=== PATIENT | male | born 1955 | race Caucasian/White ===

== ENCOUNTER 2023-11-01 09:19 | Emergency (ER) | payer OTHER, SELFPAY ==
--- NOTE | ~2023-11-01 | CT_ITS ---
EXAMINATION: CT abdomen pelvis w con DATE: 11/01/2023 13:46 INDICATION: pancreatitis TECHNIQUE: Computed tomography (CT) of the abdomen and pelvis was performed with 100 mL Omnipaque-350 intravenous contrast. Automated exposure control and iterative reconstruction technique were employe d. The dose-length product was 835.72 mGy-cm. COMPARISON: CTA chest abdomen pelvis 09/11/2023. FINDINGS: Lower thorax: Cardiomegaly. Pacer wires. Senescent changes in the lungs. Pulmonary granulomas. Scatte red areas of tubular and rounded Y and V shaped opacities in the right lower lobe. Anterior right eve st wall implant right, lead extending to the right pleural space. Liver: Multiple small cysts and lesions that are too small to characterize but also probably represen t cysts. Biliary/Gallbladder: Gallbladder is normal. No bile duct dilation. Pancreas: Stable mild pancreatic duct dilation. No mass. No surrounding inflammatory change. Spleen: Normal. Adrenals:No mass. Kidneys: No suspicious mass, obstructing stone, or hydronephrosis simple left renal cysts. GI tract: No small or large bowel dilation. Normal appendix. Diverticulosis without diverticulitis. Mesentery/Peritoneum: No ascites, mass, or free air. Right retroperitoneal implant with wires extendi ng to the lumbar spine. Retroperitoneum: No mass. Atherosclerotic abdominal aortic and/or arterial calcifications. Pelvis: Marked prostatomegaly. Normal urinary bladder. Brachytherapy seeds. Soft Tissues: Soft tissues and body wall unremarkable. Bones: No acute osseous finding. Uncomplicated posterior fusion hardware. IMPRESSION: No acute abdominopelvic process detected. Specifically, no CT evidence of acute pancreatitis. Chronic right lower lobe mucoid impaction/bronchoceles as can be seen with ABPA, and some endobronchi al lesions. Reviewed, dictated and finalized at location K. K WASHER IMPRESSION: No acute abdominopelvic process detected. Specifically, no CT evidence of acute pancreatitis. Chronic right lower lobe mucoid impaction/bronchoceles as can be seen with ABPA , and some endobronchial lesions.
--- NOTE | ~2023-11-01 | XR_ITS ---
EXAMINATION: XR chest 1V portable DATE: 11/01/2023 10:02 INDICATION: Intermittent chest pain TECHNIQUE: frontal view of the chest was obtained. COMPARISON: Chest radiograph and CT dated 09/11/23 FINDINGS: Chronic elevation of the left hemidiaphragm. Asymmetric increased lucency of the right lung relative to the left likely resulting from mild rightward rotation of the patient. No focal airspace opacities , pulmonary edema, pleural effusion or pneumothorax. The cardiomediastinal silhouette is within ar l limits for AP technique. Dual lead pacemaker seen with leads projecting over the expected locations of the right atrium and right ventricle. Additional electronic device with leads at the right chest wall and second lead extending cephalad into the right neck. IMPRESSION: 1. No acute cardiopulmonary disease. Reviewed, dictated and finalized at location A. MAKER APPRENTICE
--- NOTE | ~2023-11-01 | CT_ITS ---
EXAMINATION: CTA chest DATE: 11/01/2023 10:47 INDICATION: Chest pain TECHNIQUE: Computed tomographic angiography (CTA) of the chest was performed 100 mL Omnipaque-350 int ravenous contrast. Volume-rendered 3D-reconstructions of the aorta and large arteries were constructe d by the technologist on a separate workstation. Automated exposure control and iterative reconstruct ion technique were employed. The dose-length product was 727.04 mGy-cm. COMPARISON: CT dated 09/11/2023 FINDINGS: Elevation of the left hemidiaphragm with mild left basilar atelectasis. Very small posterior layering left pleural effusion. A couple chronic bronchoceles in the posterior right lower lobe. No pneumonia , pulmonary edema or right-sided pleural effusion. Heart size is normal. No pericardial effusion. Verito l lead pacemaker/AICD seen with lead tips at the radial appendage and at the apex of the right ventri melissa. Unchanged fusiform ectasia of the ascending thoracic aorta which measures up to 4.3 cm in mariah l diameter. There is a small amount of scattered nonhemodynamically significant atherosclerotic plaqu e in the aorta with no dissection. No pathologically enlarged thoracic lymphadenopathy. A few scatter ed subcentimeter hepatic cysts. Visualized upper abdomen is otherwise unremarkable. Mild upper thorac ic levocurvature with mild spondylosis. Chronic minimal to mild vertebral body height loss at a few u pper and lower thoracic vertebral bodies. IMPRESSION: 1. Unchanged mild ectasia of the ascending thoracic aorta measuring up to 4.3 cm. No dissection. 2. Very small left pleural effusion. Reviewed, dictated and finalized at location A. BAG FINISHER IMPRESSION: 1. Unchanged mild ectasia of the ascending thoracic aorta measuring up to 4.3 c m. No dissection. 2. Very small left pleural effusion.
[2023-11-01 09:19] VITALS: BP 155/96; PULSE 80; RESP 19; TEMP 36.4; O2SAT 100
--- NOTE | 2023-11-01 09:19 | ECG_ITS ---
Measurements Intervals [place] Rate: 80 P: 107 MA: 193 QRS: 263 QRSD: 138 T: 70 QT: 426 QTc: 492 Interpretive Statements ELECTRONIC ATRIAL PACEMAKER ELECTRONIC VENTRICULAR PACEMAKER ABNORMAL RHYTHM ECG NO PREVIOUS ECG AVAILABLE FOR COMPARISON Electronically Signed On 11-01-2023 19:12:20 SHREDDING MACHINE OPERATOR by Troy Perae M.D.
[2023-11-01 09:33] VITALS: PULSE 80; O2SAT 100
[2023-11-01 09:43] LABS: Basophils Percent Auto 0.4 % (0.2-1.2); Eosinophils Absolute Auto 0.2 K/mm3 (0-0.3); Eosinophils Percent Auto 1.5 % (0-4.4); Hematocrit 38.2 % (42.0-52.0); Hemoglobin 12.2 g/dL (14.0-18.0); Immature Granulocyte Absolute 0.04 K/mm3 (0.00-0.031); Immature Granulocyte Percent A 0.4 % (0-0.5); Lymphocytes Absolute Auto 1.61 K/mm3 (0.9-3.2); Lymphocytes Percent Auto 15.1 % (18.3-44.2); Mean Corpuscular HGB Conc 31.9 g/dl (32-36); Mean Corpuscular Volume 87.6 fl (80-100); Mean Platelet Volume 9.2 fl (7.4-10.4); Monocytes Absolute Auto 1.1 K/mm3 (0.1-0.6); Monocytes Percent Auto 10.7 % (2.6-8.5); Neutrophils Absolute Auto 7.7 K/mm3 (1.3-6.7); Neutrophils Percent Auto 71.9 % (45.5-73.1); Platelet Count Result 253 k/mm3 (150-375); Red Blood Count 4.36 M/mm3 (4.6-6.20); Red Cell Distribution Width 13.4 % (11.5-14.5); White Blood Count 10.7 K/mm3 (4.5-10.0)
[2023-11-01 09:45] LABS: INR 1.3; Prothrombin Time 17.1 Seconds (11.1-14.7)
[2023-11-01 09:46] LABS: Partial Thromboplastin Time 33.7 SECONDS (22.3-36.8)
[2023-11-01 09:47] LABS: Alanine Aminotransferase 14 U/L (6-50); Alkaline Phosphatase 102 U/L (38-126); Anion Gap 7 mmol/L (8-16); Aspartate Amino Transferase 27 U/L (17-59); Bilirubin,Total 0.8 mg/dL (0.2-1.3); Blood Urea Nitrogen 17 mg/dL (9-20); Calcium 8.9 mg/dL (8.4-10.2); Carbon Dioxide 23 mmol/L (22-30); Chloride 108 mmol/L (98-107); Estimated CRCL calculation 63 ml/min; Estimated Glomerular Filt Rate > 60; Glucose 102 mg/dL (65-110); Lipase 391 U/L (23-300); Potassium 3.8 mmol/L (3.4-5.0); Sodium 138 mmol/L (137-145)
[2023-11-01 09:58] LABS: Troponin I < 0.012 ng/mL (0.000-0.034)
[2023-11-01] MEDS: NITROGLYCERIN SL 0.4 MG TABLET SUBLINGUAL (10:00)
--- NOTE | 2023-11-01 10:18 | ED.CHESTPAIN ---
HPI - Chest Pain General Chief Complaint: Chest Pain Stated Complaint: chest pain Time Seen by Provider: 11/01/23 09:27 History of Present Illness HPI narrative: Patient is a 68-year-old male who presents to the emergency department this morning complaining of substernal chest radiating to back. He states that he is having this pain off and on since the or the 17 of October for the past 2 weeks ever since he had an ambulation performed at the [place]. Patient does have a pacemaker and does have a history of atrial fibrillation on Eliquis. Patient states that 2 days ago he woke up with chest pain and was diaphoretic, however, he has been trying to wait out the chest pain at home and eventually it did subside. Patient states that it returned again today this morning when he woke up from sleep and he finally decided to come to the emergency department for further evaluation. Patient denies any additional symptoms including shortness of breath, nausea, vomiting, abdominal pain, dysuria, hematuria, constipation, diarrhea, melena, hematochezia, fevers or chills. There are no other modifying, alleviating, or precipitating factors at this time. Related Data Allergies Allergy/AdvReac Type Severity Reaction Status Date / Time gabapentin Allergy Nausea and Verified 11/01/23 09:26 Vomiting Penicillins Allergy Fainting Verified 11/01/23 09:26 Review of Systems Review of Systems: All systems are reviewed and are negative unless stated otherwise in the HPI. PMFSH Comments History of atrial fibrillation on Eliquis, pacemaker placement, ablation performed 2 weeks ago, denies any significant family history, denies any tobacco use, alcohol abuse, illicit drug use. Exam Narrative: General: Alert, awake, afebrile, in no acute distress. HEENT: PERRL, no rhinorrhea, no post nasal drip, oropharynx clear. Neck: Trachea midline, no JVD, no lymphadenopathy. Cardiovascular: Regular rate and rhythm, no murmurs, rubs or gallops, no peripheral edema. Respiratory: Clear to auscultation bilaterally, no tachypnea, no wheezing, no rhonchi, no rubs, no respiratory distress. Abdomen: Soft, nontender, nondistended, no rebound, no guarding, no peritoneal signs. Musculoskeletal: No joint swelling or deformity, normal muscle tone. Skin: No rashes or petechia, no signs of infection. Psychiatric: Alert and oriented, normal behavior and judgment for situation. Neurological: Alert and oriented to person, place, and time. Follows all commands. No focal deficits, speech is clear and fluent. Course Vital Signs Vital signs: Vital Signs Temperature 97.6 F 11/01/23 09:19 Pulse Rate 80 11/01/23 09:19 Respiratory Rate 19 11/01/23 09:19 Blood Pressure 155/96 H 11/01/23 09:19 Pulse Oximetry 100 11/01/23 09:19 Oxygen Delivery Room Air 11/01/23 09:19 Temperature 97.6 F 11/01/23 09:19 Pulse Rate 98 11/01/23 15:23 Respiratory Rate 18 11/01/23 15:23 Blood Pressure 156/98 H 11/01/23 15:23 Pulse Oximetry 100 11/01/23 15:23 Oxygen Delivery Room Air 11/01/23 09:33 MDM - Chest Pain MDM Narrative Medical decision making narrative: The patient was evaluated by myself in the emergency department. History is obtained from patient who is an independent historian and physical exam was performed. External medical records were reviewed at this time. IV was established and pertinent tests were ordered. Patient was administered 2 sublingual nitroglycerin by EMS prior to arrival which patient states did not alleviate his pain. At this time he was administered 15 mg of IV Toradol for pain. EKG was obtained which revealed a paced rhythm at a rate of 80 beats per minute, good capture, negative Sgarbossa. EKG was independently interpreted by me and is currently pending official cardiology read. Repeat EKG obtained 3 hours from initial EKG at 1245 revealed similar findings, paced rhythm at a rate of 80 beats per minute, good capture, ne
[2023-11-01] MEDS: KETOROLAC 15 MG/ML VIAL (*BKC) IV PUSH (11:17)
[2023-11-01 11:21] VITALS: BP 148/102; PULSE 80; RESP 16; O2SAT 99
--- NOTE | 2023-11-01 12:40 | ECG_ITS ---
Measurements Intervals [place] Rate: 80 P: 201 RI: 182 QRS: 261 QRSD: 157 T: 69 QT: 434 QTc: 501 Interpretive Statements ELECTRONIC ATRIAL PACEMAKER ELECTRONIC VENTRICULAR PACEMAKER ABNORMAL RHYTHM ECG COMPARED TO ECG EARLIER TODAY THERE IS NO DIFFERENCE Electronically Signed On 11-01-2023 19:14:33 PERMANENT WAVER by Troy Perea M.D.
[2023-11-01 13:18] LABS: Troponin I < 0.012 ng/mL (0.000-0.034)
[2023-11-01 13:58] VITALS: BP 168/97; PULSE 80; RESP 20; O2SAT 100
[2023-11-01] MEDS: MORPHINE SULFATE (*CRX) 4 MG/ML INJ IV PUSH (14:03)
[2023-11-01] MEDS: ONDANSETRON INJ 4 MG/2 ML VIAL IV PUSH (14:03)
[2023-11-01 15:23] VITALS: BP 156/98; PULSE 98; RESP 18; O2SAT 100
== END 2023-11-01 15:10 | disposition home or self-care (01) ==
PROVIDERS: Emergency Medicine; Emergency Provider Emergency Medicine
DX: R07.2 Precordial pain (principal); R74.8 Abnormal levels of other serum enzymes; I48.91 Unspecified atrial fibrillation; Z95.0 Presence of cardiac pacemaker; Z79.01 Long term (current) use of anticoagulants
CPT/HCPCS: 36415; 71045; 71275; 74177; 80053; 83690; 84484; 85025; 85610; 85730; 93005; 96374; 96375; 99284; A9270; J1885; J2270; J2405; Q9967